=== PATIENT | female | born 1995 | race Caucasian/White ===

== ENCOUNTER 2017-04-20 00:56 | Emergency (ER) | payer OTHER ==
[~2017-04-20 00:56] MED LIST: AMOX875T60 PO; MEDR150D IM; OXYC-865 PO; PRED20TA6 PO
--- NOTE | 2017-04-20 01:13 | ER Report ---
History and Physical Time Seen By MD: 01:13 Hx. of Stated Complaint: PT HIT HEAD 2 YEARS AGO. HAVING OFF AND ON PAIN. HPI/ROS CHIEF COMPLAINT: headaches HISTORY OF PRESENT ILLNESS: This is a 22 year old female. She is having a problem with headaches. She says that she has been getting daily headaches for the last 5 years or so. This all started after a head injury. She and a friend fell and she hit her head against a brick wall. She still has a slight divot in her occipital skull. Had migraines prior to this, but headaches more frequent after the injury. Daily over the last few years. No over the counter medicines help, so she no longer uses them. Notes the headaches are often worse when she has her hair up. Usually rated about a 5 on a 1-10 scale. She has never seen anyone for evaluation of these. Her friends have talked her into coming into the ER tonight. She has no photophobia, but has noticed over the last few years her eye sight getting blurry. She says that her sight seems more blurry when she has a headache. She never has had any weakness or numbness in the face or extremities associated with these. Sometimes some dizziness. Has passed out in the past a few times, but no dizziness or near syncope in the last weeks. No fevers or chills. No recent illnesses. No chest pain. No shortness of breath. Allergies: Coded Allergies: Anesthetics - Amide Type (Verified Allergy, Mild, hives, 04/20/17) Hives during oral surgery Home Meds Active Scripts Promethazine Hcl (PROMETHAZINE HCL) 25 Mg Tablet, 25 MG PO Q8H Y for HEADACHE, # 20 TAB 0 Refills Prov:DLEMA VORA MD 04/20/17 Ketorolac Tromethamine (KETOROLAC TROMETHAMINE) 10 Mg Tab, 10 MG PO Q6H Y for PAIN, #12 TAB 0 Refills Prov:DELMA VORA MD 04/20/17 Discontinued Reported Medications Medroxyprogesterone Acetate (DEPO-PROVERA) 150 Mg/1 Ml Disp.syrin, 150 MG IM 03/09/16 Discontinued Scripts Prednisone (PREDNISONE) 20 Mg Tablet, 40 MG PO DAILY, #10 TAB Prov:KELSEA MARTINEZ 03/10/16 Oxycodone Hcl/Acetaminophen (PERCOCET 5-325 MG TABLET) 1 Each Tablet, 1 EACH PO Q4H Y for PAIN, #15 TAB Prov:BRYAN ROUSE DO 03/09/16 Amoxicillin (AMOXICILLIN) 875 Mg Tablet, 1 TAB PO Q12H for infection, #14 TAB Prov:BRYAN ROUSE DO 03/09/16 Reviewed Nurses Notes: Yes Hx Substance Use Disorder: No Hx Alcohol Use: No Constitutional Vital Sign - Last 24 Hours 04/20/17 04/20/17 01:00 02:55 Temp 98.1 Pulse 69 56 Resp 14 B/P (MAP) 123/77 109/77 (88) Pulse Ox 97 98 Physical Exam General Appearance: The patient is alert. No acute distress. Head: She has a slight divot just to the left of midline down the back of her occipital skull, but is non-tender. Eyes: Pupils are equal, round. Reactive to light. No pallor, injection or icterus. Extraocular movements are intact. ENT: Mucous membranes are moist. Normal oral mucosa. Posterior oropharynx is normal. Normal tympanic membranes and canals. Neck: Supple and non tender. No lymphadenopathy. Respiratory: Breathing easily and unlabored. Lungs are clear to auscultation. Cardiovascular: Regular rate and rhythm. No murmurs, gallops or rubs. Normal capillary refill. Gastrointestinal: Abdomen is soft and non tender. Nondistended. Normal active bowel sounds. Neurological: Alert and oriented x3. Cranial nerves with eye exam as noted above , normal face sensation and motor function, midline tongue, symmetric palate elevation, normal shoulder shrug. Arms and legs with normal strength and sensation. Reflexes are diminished throughout. Normal cerebellar function. Skin: Warm and dry. No rashes. Musculoskeletal: Extremities are nontender. Some tenderness at the back of her skull. DIFFERENTIAL DIAGNOSIS: After history and physical exam, differential diagnosis was considered for headache including but not limited to subarachnoid hemorrhage , post traumatic chronic headaches, intracranial abnormalities, migraine headache, tension headache and infectious causes Medical Decision Making EKG/Imaging Imaging EXAMINATION: CT Head without intravenous contrast HISTORY: Headache. TECHNIQUE: Axial images were obtained from the skull base to the vertex without intravenous contrast. Sagittal and coronal reformatted images are also submitted. One of the following dose optimization techniques was utilized in the performance of this exam: Automated exposure control; adjustment of the mA and/ or kV according to the patient's size; or use of an iterative reconstruction technique. Specific details can be referenced in the facility's radiology CT exam operational policy. COMPARISON: None. FINDINGS: Brain volume: Normal. Ventricles: Negative. Acute ischemic changes: None. Hemorrhage: None. Masses / edema: None. Duncan-white: Negative. White matter: Negative. Vessels: Negative. Extra-axial: Negative. Calvarium / skull base: Mild type I Chiari malformation. Visualized sinuses / orbits: Negative. IMPRESSION: 1. Mild type I Chiari malformation. 2. Otherwise normal noncontrast head CT. Report Dictated By: Delvin Cary MD at 04/20/2017 2:05 AM ED Course/Re-evaluation ED Course Discussed the results of head CT scan. Discussed what a Chiari 1 malformation is. No sign of swelling or hydrocephalus. Recommended follow-up with Neurology for further evaluation of possible post traumatic headache syndrome, migraines, as well as the Chiari malformation. Offered to have her try Toradol or Phenergan for her headache, which she accepted a take home pack for these as her headaches are not severe at this time. Decision to Disposition Date: Apr 20, 2017 Decision to Disposition Time: 02:40 Depart Departure Latest Vital Signs Vital Signs Date Time Temp Pulse Resp B/P (MAP) Pulse Ox O2 Delivery O2 Flow Rate FiO2 04/20/17 02:55 56 109/77 (88) 98 04/20/17 01:00 98.1 14 Impression: Primary Impression: Chronic headaches Additional Impression: Chiari malformation type I Condition: Improved Disposition: HOME OR SELF-CARE New Scripts Promethazine Hcl (PROMETHAZINE HCL) 25 Mg Tablet 25 MG PO Q8H Y for HEADACHE, #20 TAB 0 Refills Prov: DELMA VORA MD 04/20/17 Ketorolac Tromethamine (KETOROLAC TROMETHAMINE) 10 Mg Tab 10 MG PO Q6H Y for PAIN, #12 TAB 0 Refills Prov: DELMA VORA MD 04/20/17 Patient Instructions: Chiari Malformation (DC), Chronic Post Traumatic Headache (ED) Additional Instructions: For your headaches, you will need to follow-up with neurology for further evaluation. Talk to your primary care provider for a referral. Your headaches could be due to post-traumatic changes that cause chronic headaches. They could be due to the Chiari 1 malformation, which is a change in the base of the skull that you were born with. These can start to cause chronic headaches as you age. Neurology can help you with further evaluation of these problems. In the meantime, to help with headache, you can try taking some Toradol 10mg, one every 6 hours as needed for pain. You can try Phenergan 25mg tablets, 1/2 to 1 every 8 hours as needed for headache or nausea. Recommend seeing neurology in the next 1-2 weeks. Problem Qualifiers Primary Impression: Chronic headaches Headache type: unspecified Intractability: intractable Qualified Codes: R51 - Headache DELMA VORA MD Apr 20, 2017 01:13
--- NOTE | 2017-04-20 02:16 | RADIOLOGY IMAGING REPORT ---
FACILITY: [facility] PATIENT NAME: Mervat Connor : 1995 MR: [id number] V: [id number] EXAM DATE: ORDERING PHYSICIAN: DELMA VORA TECHNOLOGIST: Location: [facility] - [place], [place] Patient: Mervat Connor : 1995 Visit/Account:[id number] Date of Sevice: 04/20/2017 EXAMINATION: CT Head without intravenous contrast HISTORY: Headache. TECHNIQUE: Axial images were obtained from the skull base to the vertex without intravenous contrast . Sagittal and coronal reformatted images are also submitted. One of the following dose optimization techniques was utilized in the performance of this exam: Autom ated exposure control; adjustment of the mA and/or kV according to the patient's size; or use of an i terative reconstruction technique. Specific details can be referenced in the facility's radiology C T exam operational policy. COMPARISON: None. FINDINGS: Brain volume: Normal. Ventricles: Negative. Acute ischemic changes: None. Hemorrhage: None. Masses / edema: None. Duncan-white: Negative. White matter: Negative. Vessels: Negative. Extra-axial: Negative. Calvarium / skull base: Mild type I Chiari malformation. Visualized sinuses / orbits: Negative. IMPRESSION: 1. Mild type I Chiari malformation. 2. Otherwise normal noncontrast head CT. Report Dictated By: Delvin Cary MD at 04/20/2017 2:05 AM Report E-Signed By: Delvin Cary MD at 04/20/2017 2:11 AM WSN:[id number]
[2017-04-20] MEDS ORDERED: KET10 PO (02:44)
[2017-04-20] MEDS ORDERED: PROM-110 PO (02:44)
[2017-04-20] MEDS ORDERED: PROMETHAZINE HCL 25 MG TAB TH 2 TAB/BOTTLE PO ONE (02:45)
[2017-04-20] MEDS ORDERED: KETOROLAC TROM 10 MG TAB TH PO ONE (02:45)
[2017-04-20 02:55] VITALS: BP 109/77
== END 2017-04-20 02:57 | disposition home or self-care (01) ==
LOC: ER 00:58
DX: R51 Headache (principal); G93.5 Compression of brain
CPT/HCPCS: 70450; 99282

== ENCOUNTER 2017-05-22 23:57 | Emergency (ER) | payer OTHER ==
[~2017-05-22 23:57] MED LIST changes: +KET10 PO; +PROM-110 PO
[2017-05-22 23:59] VITALS: BP 100/62
--- NOTE | 2017-05-23 | ER Report ---
History and Physical Time Seen By MD: 23:59 HPI/ROS CHIEF COMPLAINT: Intermediate clearance HISTORY OF PRESENT ILLNESS: 22-year-old male brought in by police for fci clearance. Patient is to heavy alcohol ingestion. She's vomiting from drinking to excess. Patient denies any injuries. She has a history of chairi malformation REVIEW OF SYSTEMS: Respiratory: No cough, no dyspnea. Cardiovascular: No chest pain, no palpitations. Gastrointestinal: no abdominal pain. Musculoskeletal: No back pain. Allergies: Coded Allergies: Anesthetics - Amide Type (Verified Allergy, Mild, hives, 05/23/17) Hives during oral surgery Home Meds Discontinued Scripts Promethazine Hcl (PROMETHAZINE HCL) 25 Mg Tablet, 25 MG PO Q8H Y for HEADACHE, # 20 TAB 0 Refills Prov:DELMA VORA MD 04/20/17 Ketorolac Tromethamine (KETOROLAC TROMETHAMINE) 10 Mg Tab, 10 MG PO Q6H Y for PAIN, #12 TAB 0 Refills Prov:DELMA VORA MD 04/20/17 Reviewed Nurses Notes: Yes Old Medical Records Reviewed: Yes Hx Substance Use Disorder: No Hx Alcohol Use: No Constitutional Vital Sign - Last 24 Hours 05/22/17 23:59 Temp 97.6 Pulse 86 Resp 16 B/P (MAP) 100/62 Pulse Ox 90 O2 Delivery Room Air Physical Exam General Appearance: The patient is alert, has no immediate need for airway protection and no current signs of toxicity. Palpation of the head and neck reveal no tenderness or trauma HEENT: Pupils equal and round no injection. Oropharynx without trauma. Odor of emesis and alcohol on breath Respiratory: Chest is non tender, lungs are clear to auscultation. Cardiac: regular rate and rhythm Gastrointestinal: Abdomen is soft and non tender, no masses, bowel sounds normal. Musculoskeletal: Neck: Neck is supple and non tender. Extremities have full range of motion and are non tender. Skin: No rashes or lesions. DIFFERENTIAL DIAGNOSIS: After history and physical exam differential diagnosis was considered for fci clearance, alcohol intoxication, polysubstance abuse Medical Decision Making ED Course/Re-evaluation ED Course Patient was admitted to an examination room. H&P was done. The differential diagnoses was considered. On clinical examination. Patient's vomiting. Patient voices no complaints injury. Patient's medically cleared for fci. She is treated with Zofran 8 mg sublingual. Decision to Disposition Date: May 22, 2017 Decision to Disposition Time: 23:59 Depart Departure Latest Vital Signs Vital Signs Date Time Temp Pulse Resp B/P (MAP) Pulse Ox O2 Delivery O2 Flow Rate FiO2 05/22/17 23:59 97.6 86 16 100/62 90 Room Air Impression: Primary Impression: Medical clearance for incarceration Additional Impressions: Alcohol intoxication Alcohol poisoning Vomiting Condition: Improved Disposition: [facility] TO LONG-TERM/CORRECTIONAL F Patient Instructions: Alcohol Intoxication (ED) Additional Instructions: Medical clear for fci admission Problem Qualifiers Additional Impressions: Alcohol intoxication Complication of substance-induced condition: uncomplicated Qualified Codes: F10.920 - Alcohol use, unspecified with intoxication, uncomplicated Alcohol poisoning Encounter type: initial encounter Injury intent: accidental or unintentional Qualified Codes: T51.91XA - Toxic effect of unspecified alcohol , accidental (unintentional), initial encounter Vomiting Vomiting type: unspecified Vomiting Intractability: unspecified Nausea presence: unspecified Qualified Codes: R11.10 - Vomiting, unspecified BRYAN ROUSE DO May 23, 2017 00:00
[2017-05-23] MEDS ORDERED: ONDANSETRON 4 MG ODT TABDP SL ONE (00:05)
== END 2017-05-23 00:15 ==
LOC: ER 05-23 00:03
DX: T51.0X1A Toxic effect of ethanol, accidental (unintentional), initial encounter (principal)
CPT/HCPCS: 99283; S0119